=== PATIENT | male | born 2000 | race Two or more races ===

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

== ENCOUNTER 2020-06-28 14:27 | Emergency (ER) | payer SELFPAY ==
[~2020-06-28] VITALS: Ht 172.7 cm; Wt 73.0 kg
[~2020-06-28 14:27] MED LIST: HYDR-3164 PO
[2020-06-28 14:30] VITALS: BP 233/130
[2020-06-28] MEDS ORDERED: CLIN150C15 PO (14:55)
[2020-06-28] MEDS ORDERED: NAPR-514 PO (14:55)
--- NOTE | 2020-06-28 14:56 | ED.ADGEN ---
Past Medical History Past Medical History: No Pertinent History Additional Past Surgical Histo: oral surgery Smoking Status: Never Smoker Alcohol Use: None Drug Use: None General Adult EDM: Chief Complaint: Toothache HPI: HPI: Patient is a 19 year old emergency department with complaints of right lower dental pain with a broken tooth that has been draining bloody pus since yesterday. He denies any fever, body aches, fatigue, nausea, vomiting, sore throat, or difficulty swallowing. Patient states that his tooth has been broken for quite some time but did not start draining pus or becoming painful until yesterday. Patient states he has tried taking ibuprofen and some of his girlfriends hydrocodone for relief of the pain. He states it has not helped he currently rates the pain 10 out of 10 on the pain scale, he states that the pain is constant. Review of Systems: Review of Systems: Complete ROS is negative unless otherwise noted in HPI. Allergies: Allergies: Allergies Coded Allergies Type Severity Reaction Last Updated Verified No Known Drug Allergies 11/22/15 No Physical Exam: PE: See Above Constitutional: Well developed, well nourished, no acute distress, non-toxic ap pearance. [] HENT: Normocephalic, atraumatic, bilateral external ears normal, nose normal; tooth #32 is noted to be fractured with dental decay present, no visible dental abscess, no current bleeding or drainage.. [] Eyes: PERRLA, EOMI, conjunctiva normal, no discharge. [] Neck: Normal range of motion, supple, nontender, no stridor. [] Cardiovascular:Heart rate regular rhythm Lungs & Thorax: Respirations even and unlabored, no retractions, no respiratory distress Skin: Warm, dry, no erythema, no rash. [] Extremities: No cyanosis, ROM intact, no edema. [] Neurologic: Alert and oriented X 3, no focal deficits noted. [] Psychologic: Affect normal, judgement normal, mood normal. [] EKG: EKG: [] Heart Score: C/O Chest Pain: No Risk Scores: Score 0 - 3: 2.5% MACE over next 6 weeks - Discharge Home Score 4 - 6: 20.3% MACE over next 6 weeks - Admit for Clinical Observation Score 7 - 10: 72.7% MACE over next 6 weeks - Early Invasive Strategies Radiology/Procedures: Radiology/Procedures: [] Course & Med Decision Making: Course & Med Decision Making Pertinent Labs and Imaging studies reviewed. (See chart for details) [] Dragon Disclaimer: Dragon Disclaimer: This electronic medical record was generated, in whole or in part, using a voice recognition dictation system. Departure Departure Impression: Primary Impression: Broken tooth without complication Additional Impressions: Infected dental caries Dentalgia Disposition: 01 DC HOME SELF CARE/HOMELESS Condition: STABLE Referrals: NO PCP (PCP) Patient Instructions: Dental Caries, Dental Fracture, Dental Pain, [id number] Additional Instructions: Fill prescription(s) and use as directed. Follow up with dentist using the referral list provided. Return to the ER if symptoms worsen. Scripts Clindamycin Hcl (CLINDAMYCIN HCL) 150 Mg Capsule 300 MG PO QID for 7 Days, #56 CAP 0 Refills Prov: MAXIM WALKER APRN 06/28/20 Naproxen (NAPROXEN) 500 Mg Tablet 1 TAB PO BID PRN for PAIN for 10 Days, #20 TAB 0 Refills Prov: MAXIM WALKER APRN 06/28/20 Problem Qualifiers Primary Impression: Broken tooth without complication Encounter type: initial encounter Fracture type: open Qualified Codes: S02.5XXB - Fracture of tooth (traumatic), initial encounter for open fracture MAIXM WALKER [employer] MA[employer] CLERK Jun 28, 2020 14:56
== END 2020-06-28 15:10 | disposition home or self-care (01) ==
LOC: ER 14:27
DX: S02.5XXA Fracture of tooth (traumatic), initial encounter for closed fracture (principal); K02.9 Dental caries, unspecified; K08.89 Other specified disorders of teeth and supporting structures; X58.XXXA Exposure to other specified factors, initial encounter; Y93.89 Activity, other specified; Y92.89 Other specified places as the place of occurrence of the external cause; Y99.8 Other external cause status
CPT/HCPCS: 99283